=== PATIENT | male | born 1990 | race African-American/Black ===

== ENCOUNTER 2020-08-29 12:57 | Observation (INO) ==
[~2020-08-29 12:57] MED LIST: Buffered Lidocaine 1% SYRIN 1 ml INTRADERM ONE; Lactated Ringers 1000 ml BAG 1,000 ML IV SCH
[2020-08-29] MEDS ORDERED: ceFAZolin 2 GM PREMIX 2 GM/50 ML BAG ONE (13:17)
[2020-08-29] MEDS ORDERED: Bupivacaine 0.5% SDV PF 30ML VIAL ONE (14:25)
[2020-08-29] MEDS ORDERED: Bupivacaine 0.25% SDV 30 ML ONE (14:25)
[2020-08-29] MEDS ORDERED: Lidocaine 1% MPF 5 ML VIAL ONE (14:26)
[2020-08-29] MEDS ORDERED: Midazolam 5 mg/5 ml VIAL 1 mg/ml 5 ml VIAL (5 mg) ONE (14:49)
[2020-08-29] MEDS ORDERED: fentaNYL 100 mcg/2 ml 50 MCG/ML VIAL ONE ×2 (15:13→18:12)
[2020-08-29] MEDS ORDERED: Ketamine HCL 50 mg/ml 10 ml VIAL (500 MG) ONE (15:13)
[2020-08-29] MEDS ORDERED: Midazolam 2 mg/2 ml VIAL 1 mg/ml 2 ml VIAL (2 mg) ONE (15:14)
[2020-08-29] MEDS ORDERED: Propofol 10 MG/ML 20 ML BTL ONE (15:18)
[2020-08-29] MEDS ORDERED: Ondansetron 4 mg VIAL 2 MG/ML 2 ml VIAL ONE (15:18)
[2020-08-29] MEDS ORDERED: Dexamethasone IV 4 MG/ML VIAL 1 ml VIAL ONE (15:18)
[2020-08-29] MEDS ORDERED: Lidocaine 2% PF 5 ML VIAL ONE (15:18)
[2020-08-29] MEDS ORDERED: Glycopyrrolate IV 0.2 MG/ML 1 ML VIAL ONE (15:54)
[2020-08-29] MEDS ORDERED: Ondansetron 4 mg VIAL 2 MG/ML 2 ml VIAL IV PRN ×2 (16:26→17:54)
[2020-08-29] MEDS ORDERED: Naloxone 0.4 mg VIAL 0.4 mg/ml 1 ml VIAL IV PRN (16:26)
[2020-08-29] MEDS ORDERED: HYDROmorphone 1 MG/1 ML SYRINGE IV PRN (16:26)
[2020-08-29] MEDS ORDERED: HYDROmorphone 1 MG/1 ML SYRINGE ONE (16:38)
[2020-08-29] MEDS ORDERED: diPHENhydraMINE 25 mg TAB PO PRN (17:54)
[2020-08-29] MEDS ORDERED: diPHENhydraMINE IV 50 MG/ML 1 ml VIAL (BENADRYL) IV PRN (17:54)
[2020-08-29] MEDS ORDERED: Ondansetron ODT 4 mg TAB 4 MG TAB PO PRN (17:54)
[2020-08-29] MEDS ORDERED: oxyCODONE/Acetamin 5/325 mg TAB PO PRN (17:54)
[2020-08-29] MEDS ORDERED: Lactated Ringers 1000 ml BAG 1,000 ML IV SCH (18:00)
[2020-08-29] MEDS ORDERED: oxyCODONE/Acetamin 5/325 mg TAB ONE (18:12)
[2020-08-29] MEDS: fentaNYL 100 mcg/2 ml 50 MCG/ML VIAL IV PRN ×5 (18:16→18:53)
[2020-08-29] MEDS: oxyCODONE/Acetamin 5/325 mg TAB PO PRN (20:29)
[2020-08-29] MEDS: ceFAZolin 1 GM ADVAN 1 GM in NS 0.9% 50 ML 50 ML IVPB SCH (23:36)
[2020-08-30] MEDS: oxyCODONE/Acetamin 5/325 mg TAB PO PRN ×4 (00:37→13:51)
[2020-08-30] MEDS: ceFAZolin 1 GM ADVAN 1 GM in NS 0.9% 50 ML 50 ML IVPB SCH ×2 (08:26→14:55)
[2020-08-30 16:54] VITALS: BP 151/69
== END 2020-08-30 17:00 ==
LOC: SSU 12:57 → OR 12:57
PROVIDERS: ADMIT Orthopaedic Surgery; ATTEND Orthopaedic Surgery